=== PATIENT | male | born 1990 | race American Indian/Alaskan Native ===

== ENCOUNTER 2017-05-29 19:16 | Emergency (ER) | payer SELFPAY ==
[2017-05-29 19:34] VITALS: BP 136/83
--- NOTE | 2017-05-29 21:24 | Emergency Department Report ---
HPI - General Chief Complaint: Extremity Injury, Upper Time Seen by Provider: 05/29/17 21:06 - HPI HPI: This is a 26 year-old male presents to the emergency department with complaint of some pain in front of the elbow and up towards the bicep that occurred earlier today at work while he was trying to lift and push a heavy pallet. He states that he felt a pop at that time. He denies any significant swelling or skin color change. He is right hand dominant. He did not take anything for her symptoms. Presentation. He denies any past medical history. ED Past Medical Hx - Past Medical History Previous Medical History?: No - Surgical History Additional Surgical History: left leg sgy - Social History Smoking Status: Never Smoker Substance Use Type: None - Medications Home Medications: Home Medications Medication Instructions Recorded Confirmed Last Taken Type Ibuprofen 800 mg PO Q8H PRN #20 tablet 05/29/17 Unknown Rx ED Review of Systems ROS: Stated complaint: RIGHT ARM PAIN Other details as noted in HPI Comment: All other systems reviewed and negative Constitutional: denies: chills, fever Eyes: denies: eye pain, eye discharge, vision change ENT: denies: ear pain, throat pain Respiratory: denies: cough, shortness of breath, wheezing Cardiovascular: denies: chest pain, palpitations Gastrointestinal: denies: abdominal pain, nausea, diarrhea Genitourinary: denies: urgency, dysuria Musculoskeletal: arthralgia, myalgia. denies: back pain Skin: denies: rash, lesions Neurological: denies: headache, weakness, paresthesias Physical Exam - Physical Exam Vital Signs: Vital Signs 05/29/17 05/29/17 19:23 19:31 Temperature 98.3 F 98.3 F Pulse Rate 89 86 Respiratory 18 18 Rate Blood Pressure 136/83 136/83 O2 Sat by Pulse 97 97 Oximetry Physical Exam: GENERAL: The patient is well-developed well-nourished. HENT: Normocephalic. Atraumatic. Patient has moist mucous membranes. EYES: Extraocular motions are intact. Pupils equal reactive to light bilaterally. NECK: Supple. Trachea is midline. CHEST/LUNGS: Clear to auscultation. There is no respiratory distress noted. HEART/CARDIOVASCULAR: Regular. There is no tachycardia. There is no murmur. ABDOMEN: Abdomen is soft, nontender. Patient has normal bowel sounds. There is no abdominal distention. SKIN: Skin is warm and dry. NEURO: The patient is awake, alert, and oriented. The patient is cooperative. The patient has no focal neurologic deficits. The patient has normal speech. MUSCULOSKELETAL: There is some tenderness palpation to the right antecubital fossa and along the biceps tendon and muscle but no obvious deformity. Pain also increases with both passive and active range of motion at the elbow and bicipital. Radial pulse +2 over 4. Cap refill less than 2 seconds. ED Course Vital Signs 05/29/17 05/29/17 19:23 19:31 Temperature 98.3 F 98.3 F Pulse Rate 89 86 Respiratory 18 18 Rate Blood Pressure 136/83 136/83 O2 Sat by Pulse 97 97 Oximetry ED Medical Decision Making - Radiology Data Radiology results: image reviewed interpreted by me: X-ray of the right elbow does not show any fracture, dislocation or obvious acute process. - Medical Decision Making 26-year-old male presents with some pain inside of the elbow and up towards the bicep after he was trying to move a heavy pallet at work. The pain is reproducible to palpation. There is no obvious deformity of the bicep to say that there is a biceps tendon rupture but there could be a strain or muscle tear. On x-ray there is no fracture, dislocation or any acute process seen on the elbow x-ray. He understands that we cannot see ligaments, tendons or muscle injury on x-ray. He will be placed in a long-arm splint, placed in a sling, and given an orthopedist referral. He will use rest, ice, compression and elevation. He will return to the ER with any worsening of his symptoms or any acute distress. - Differential Diagnosis fracture, dislocation, tendon rupture, muscle tear, sprain, strain Critical Care Time: No Critical care attestation.: If time is entered above; I have spent that time in minutes in the direct care of this critically ill patient, excluding procedure time. ED Disposition Clinical Impression: Right elbow pain Biceps strain Qualifiers: Encounter type: initial encounter Laterality: right Qualified Code(s): S46.211A - Strain of muscle, fascia and tendon of other parts of biceps, right arm, initial encounter Disposition: DC-01 TO HOME OR SELFCARE Is pt being admited?: No Condition: Stable Instructions: Muscle Strain (ED), Arthralgia (ED) Additional Instructions: Please follow up with a primary care physician in the next few days. I have given you a referral for a local orthopedist, Dr. Woodson, to follow up regarding your elbow and biceps muscle pain. If the pain continues he may need an MRI but will certainly need further evaluation. You can use ice, compression , elevation and rest. I recommend that he remain in the splint, other than bathing, until you are pain-free or you follow-up with the orthopedist. Return to the emergency Department with any worsening of your symptoms or any acute distress. Prescriptions: Ibuprofen 800 mg PO Q8H PRN #20 tablet PRN Reason: Pain Referrals: JAISON WOODSON MD [Staff Physician] - 3-5 Days Time of Disposition: 21:25
[2017-05-29] MEDS ORDERED: TORADOL IM ONE (21:32)
--- NOTE | 2017-05-29 22:12 | XRay Report ---
FINAL REPORT EXAM: XR ELBOW 3+V RT HISTORY: rt elbow pain TECHNIQUE: 3 views right elbow PRIORS: None. FINDINGS: No fracture identified. No dislocation seen. No evidence of joint effusion. Joint spaces are within normal limits. IMPRESSION: Negative elbow series
== END 2017-05-29 22:39 | disposition home or self-care (01) ==
LOC: ED 19:16
DX: S46.211A Strain of muscle, fascia and tendon of other parts of biceps, right arm, initial encounter (principal); M25.521 Pain in right elbow; X58.XXXA Exposure to other specified factors, initial encounter; Y93.9 Activity, unspecified; Y99.9 Unspecified external cause status; Y92.89 Other specified places as the place of occurrence of the external cause
CPT/HCPCS: 96372

== ENCOUNTER 2018-12-06 12:19 | Emergency (ER) | payer OTHER ==
--- NOTE | 2018-12-06 12:22 | Emergency Department Report ---
Blank Doc - Documentation Documentation: This is a 28-year-old male that presents with sore throat and fever. This initial assessment/diagnostic orders/clinical plan/treatment(s) is/are subject to change based on patient's health status, clinical progression and re- assessment by fellow clinical providers in the ED. Further treatment and workup at subsequent clinical providers discretion. Patient/guardians urged not to elope from the ED as their condition may be serious if not clinically assessed and managed. Initial orders include: 1- Patient sent to [facility] for further evaluation and treatment 2- strep swab
[2018-12-06 12:23] VITALS: BP 159/67
[2018-12-06] MEDS ORDERED: IBUPROFEN PO ONE (12:23)
[2018-12-06] MEDS ORDERED: TRIMOX PO ONE (12:33)
--- NOTE | 2018-12-06 12:33 | Emergency Department Report ---
Minor Respiratory - HPI Chief Complaint: Sore Throat Stated Complaint: STREP THROAT Time Seen by Provider: 12/06/18 12:22 Duration: 3 Days Pain Location: Throat Severity: mild Minor Respiratory: Yes Sore Throat, Yes Able to Tolerate Fluids, No Rhinorrhea, No Ear Pain, No Cough, No Sick Contacts, No Hemoptysis, No Chest Pain, No Shortness of Breath, No Fever Other History: Pt comes to ER with 3 day history of sore throat. ABC intact. Normal voice. controlling secretions. ambulatory. no fever. ED Review of Systems ROS: Stated complaint: STREP THROAT Other details as noted in HPI Comment: All other systems reviewed and negative ED Past Medical Hx - Past Medical History Previous Medical History?: Yes Hx Hypertension: Yes (Htn. No meds) Additional medical history: Left tibia/fib fx - Surgical History Past Surgical History?: Yes Additional Surgical History: left leg sgy - Family History Family history: no significant - Social History Smoking Status: Never Smoker - Medications Home Medications: Home Medications Medication Instructions Recorded Confirmed Last Taken Type Amoxicillin [Trimox CAP] 500 mg PO BID #20 capsule 12/06/18 Unknown Rx Minor Respiratory Exam - Exam General: Vital signs noted. No distress. Alert and acting appropriately. HEENT: Yes Pharyngeal Erythema, Yes Pharyngeal Exudates, Yes Moist Mucous Membranes Ear: Neither TM Bulge, Neither TM Erythema, Neither EAC Pain, Neither EAC Discharge Neck: Yes Supple, No Adenopathy Lungs: Yes Good Air Exchange, No Wheezes Heart: Yes Regular, No Murmur Abdomen: No Tenderness Skin: No Rash Neurologic: Alert and oriented, no deficits. Musculoskeletal: Unremarkable. ED Course Vital Signs 12/06/18 12:22 Temperature 100 F H Pulse Rate 103 H Respiratory 18 Rate Blood Pressure 159/67 O2 Sat by Pulse 97 Oximetry ED Medical Decision Making - Medical Decision Making strep pos dc home with antibiotics and dc plan of care Labs 12/06/18 Unknown Group A Strep Rapid Positive A Vital Signs 12/06/18 12/06/18 12/06/18 12:22 12:49 12:50 Temperature 100 F H 99.9 F H Pulse Rate 103 H 100 H Respiratory 18 18 Rate Blood Pressure 159/67 O2 Sat by Pulse 97 Oximetry 12/06/18 12:51 Temperature Pulse Rate Respiratory 18 Rate Blood Pressure O2 Sat by Pulse Oximetry Critical care attestation.: If time is entered above; I have spent that time in minutes in the direct care of this critically ill patient, excluding procedure time. ED Disposition Clinical Impression: Strep throat Disposition: DC-01 TO HOME OR SELFCARE Is pt being admited?: No Does the pt Need Aspirin: No Condition: Stable Instructions: Pharyngitis (ED) Additional Instructions: DIET TOLERATED MEDS ORDERED TODAY IN ER FOLLOW UP PCP WITHIN 48 HOURS TO ENSURE YOU ARE GETTING BETTER ACTIVITY TOLERATED MOTRIN OR TYLENOL FOR PAIN OR FEVER RETURN TO THE ER FOR WORSENING SYMPTOMS . Prescriptions: Amoxicillin [Trimox CAP] 500 mg PO BID #20 capsule Referrals: [facility] [Outside] - 3-5 Days Time of Disposition: 12:35
== END 2018-12-06 12:50 | disposition home or self-care (01) ==
LOC: ED 12:19
DX: J02.9 Acute pharyngitis, unspecified (principal); I10 Essential (primary) hypertension
CPT/HCPCS: 87430